=== PATIENT | male | born 1955 | race Caucasian/White ===

== ENCOUNTER 2017-04-02 09:21 | Emergency (ER) | payer BC ==
[2017-04-02 09:44] VITALS: BP 114/65
--- NOTE | 2017-04-02 10:04 | UC ---
Skin Complaint HPI - HPI Summary HPI Summary: pt presents with c/o left upper extremity erythema and tenderness. Pt reports that he was stung by 4-5 bees yesterday. Pt denies difficulty breathing, throat swelling or lip swelling. Pt is concerned about cellulitis - History of Current Complaint Chief Complaint: UCSkin Time Seen by Provider: 04/02/17 09:47 Stated Complaint: LEFT ARM/RIGHT EAR BEE STINGS Hx Obtained From: Patient Onset/Duration: Gradual Onset, Lasting Hours Skin Exposure Onset/Duration: Days Ago - 1 day Timing: Constant Onset Severity: Mild Current Severity: Mild Location: Discrete, Other - left upper extremity Character: Redness, Raised, Painful Aggravating: Touch Alleviating: Antihistamines Associated Signs & Symptoms: Positive: Tenderness - Allergy/Home Medications Allergies/Adverse Reactions: Allergies Allergy/AdvReac Type Severity Reaction Status Date / Time Sulfa Drugs Allergy Intermediate Rash Verified 04/02/17 09:44 Review of Systems Constitutional: Negative Skin: Other - small pin prick pustular area on mid anterior left bicep erythema , generalized erythema left upper extremity. Eyes: Negative ENT: Negative Respiratory: Negative Cardiovascular: Negative Gastrointestinal: Negative Genitourinary: Negative Motor: Negative Neurovascular: Negative Musculoskeletal: Negative Neurological: Negative Psychological: Negative All Other Systems Reviewed And Are Negative: Yes PMH/Surg Hx/FS Hx/Imm Hx Previously Healthy: Yes - Surgical History Surgical History: Yes Surgery Procedure, Year, and Place: RT HAND SURGERY. L WRIST CYST REMOVED. SINUS SX. HERNIA REPAIR. BILATERAL SHOULDER SX. BILATERAL KNEE ARTHROSCOPY - Family History Known Family History: Positive: Hypertension - Social History Alcohol Use: None Substance Use Type: None Smoking Status (MU): Former Smoker Type: Cigarettes Amount Used/How Often: 1 1/2 PPD Length of Time of Smoking/Using Tobacco: 7 Years Have You Smoked in the Last Year: No When Did the Patient Quit Smoking/Using Tobacco: 1979 - Immunization History Most Recent Tetanus Shot: within last 10 years- unsure when Physical Exam Triage Information Reviewed: Yes Appearance: Well-Appearing Vital Signs: Initial Vital Signs Pulse 61 04/02/17 09:33 Resp 20 04/02/17 09:33 BP 114/65 04/02/17 09:33 Pulse Ox 97 04/02/17 09:33 Vital Signs Reviewed: Yes Neck exam: Normal Respiratory Exam: Normal Cardiovascular Exam: Normal Musculoskeletal Exam: Normal Neurological Exam: Normal Psychological Exam: Normal Skin Exam: Other - generalized erythema on left upper extremity with generalized mild edema. small pustular area in mid anterior left bicep Course/Dx - Differential Diagnoses - Skin Complaint Differential Diagnoses: Allergic Reaction, Cellulitis - Diagnoses Provider Diagnoses: allergic reaction. bee sting. cellulitis Discharge - Discharge Plan Condition: Stable Disposition: HOME Prescriptions: Cephalexin CAP* [Keflex 500 CAP*] 500 mg PO Q12H #10 cap LoraTADine TAB(NF) [Claritin 10 MG TAB(NF)] 10 mg PO DAILY #10 tab Patient Education Materials: Cellulitis (ED), Insect Bite or Sting (ED) Referrals: Gautam St MD [Primary Care Provider] -
== END 2017-04-02 10:12 | disposition home or self-care (01) ==
LOC: UCCORT 09:21
DX: L03.114 Cellulitis of left upper limb (principal); Z87.891 Personal history of nicotine dependence; T63.441A Toxic effect of venom of bees, accidental (unintentional), initial encounter; Y92.9 Unspecified place or not applicable; T78.40XA Allergy, unspecified, initial encounter; X58.XXXA Exposure to other specified factors, initial encounter
CPT/HCPCS: 99212; G0463

== ENCOUNTER 2017-06-11 15:40 | Emergency (ER) | payer BC ==
[2017-06-11 16:13] VITALS: BP 120/67
--- NOTE | 2017-06-11 16:28 | UC ---
Hand/Wrist HPI - HPI Summary HPI Summary: Patient was walking dog, the leash got wrapped around the hand and now has swelling and pain over the 4th and 5th metacarpal. - History Of Current Complaint Chief Complaint: UCUpperExtremity Stated Complaint: HAND INJURY Time Seen by Provider: 06/11/17 16:11 Hx Obtained From: Patient ?: No Onset/Duration: Sudden Onset, Lasting Hours Severity Initially: Mild Severity Currently: Moderate Character Of Pain: Dull, Aching, Stiffness Aggravating Factor(s): Movement Alleviating: Rest, Ice Associated Signs And Symptoms: Positive: Swelling - Allergies/Home Medications Allergies/Adverse Reactions: Allergies Allergy/AdvReac Type Severity Reaction Status Date / Time Sulfa Drugs Allergy Intermediate Rash Verified 06/11/17 16:09 PMH/Surg Hx/FS Hx/Imm Hx Previously Healthy: Yes - Surgical History Surgical History: Yes Surgery Procedure, Year, and Place: RT HAND SURGERY. L WRIST CYST REMOVED. SINUS SX. HERNIA REPAIR. BILATERAL SHOULDER SX. BILATERAL KNEE ARTHROSCOPY - Family History Known Family History: Positive: Hypertension - Social History Alcohol Use: None Substance Use Type: None Smoking Status (MU): Former Smoker Type: Cigarettes Amount Used/How Often: 1 1/2 PPD Length of Time of Smoking/Using Tobacco: 7 Years Have You Smoked in the Last Year: No When Did the Patient Quit Smoking/Using Tobacco: 1979 - Immunization History Most Recent Influenza Vaccination: Not the 2016/2017 Season Most Recent Tetanus Shot: 07/11/15 Review of Systems Constitutional: Negative Skin: Negative Eyes: Negative ENT: Negative Respiratory: Negative Cardiovascular: Negative Gastrointestinal: Negative Genitourinary: Negative Motor: Negative Neurovascular: Negative Musculoskeletal: Arthralgia, Edema, Myalgia Neurological: Negative Psychological: Negative Is Patient Immunocompromised?: No All Other Systems Reviewed And Are Negative: Yes Physical Exam Triage Information Reviewed: Yes Appearance: Well-Appearing, Well-Nourished, Pain Distress Vital Signs: Initial Vital Signs Temp 97.3 F 06/11/17 16:06 Pulse 58 06/11/17 16:06 Resp 16 06/11/17 16:06 BP 120/67 06/11/17 16:06 Pulse Ox 100 06/11/17 16:06 Vital Signs Reviewed: Yes Eye Exam: Normal ENT Exam: Normal ENT: Positive: Hearing grossly normal, Pharynx normal, TMs normal Dental Exam: Normal Neck exam: Normal Neck: Positive: Supple, Nontender, No Lymphadenopathy Respiratory Exam: Normal Respiratory: Positive: Chest non-tender, Lungs clear, Normal breath sounds Cardiovascular Exam: Normal Cardiovascular: Positive: RRR, No Murmur, Pulses Normal Abdominal Exam: Normal Abdomen Description: Positive: Nontender, No Organomegaly, Soft Bowel Sounds: Positive: Present Musculoskeletal: Positive: ROM Intact, Strength Limited @ - in right visitor services specialist, Edema @ - over the 4th and 5th met Neurological Exam: Normal Psychological Exam: Normal Skin Exam: Normal Hand/Wrist Course/Dx - Course Course Of Treatment: hx obtained, exam performed ,meds reviewed, ice applied and xray obtained and is negative, lavonne applied, referred to otho for follow up if not improving - Differential Dx/Diagnosis Differential Diagnosis/HQI/PQRI: Contusion, Dislocation, Fracture, Sprain, Strain Provider Diagnoses: contusion to right hand Discharge - Discharge Plan Condition: Stable Disposition: HOME Patient Education Materials: Contusion in Adults (ED) Referrals: Gautam St MD [Primary Care Provider] - Epi Miller MD [Medical Doctor] - Additional Instructions: 1. Ibuprofen and compression to reduce the swelling. 2. Follow up with Dr Miller if pain persists.
--- NOTE | 2017-06-11 17:00 | RAD ---
HISTORY: Right hand injury COMPARISONS: May 26, 2013 VIEWS: 4, Frontal, lateral, and oblique views of the right hand FINDINGS: BONE DENSITY: Normal. BONES: There is post surgical change to the fourth metacarpal. There is remote posttraumatic deformity to the fifth metacarpal. There is no acute displaced fracture or dislocation. JOINTS: There is no arthropathy. ALIGNMENT: There is no dislocation. SOFT TISSUES: Unremarkable. OTHER FINDINGS: None. IMPRESSION: POSTSURGICAL AND REMOTE POST TRAUMATIC CHANGE. NO ACUTE OSSEOUS INJURY. IF SYMPTOMS PERSIST, RECOMMEND REPEAT IMAGING.
== END 2017-06-11 17:17 | disposition home or self-care (01) ==
LOC: UCCORT 15:40
DX: S60.221A Contusion of right hand, initial encounter (principal); W23.0XXA Caught, crushed, jammed, or pinched between moving objects, initial encounter; Y93.K1 Activity, walking an animal; Y92.9 Unspecified place or not applicable; Z88.2 Allergy status to sulfonamides; Z87.891 Personal history of nicotine dependence
CPT/HCPCS: 99212; G0463

== ENCOUNTER 2017-07-16 07:08 | Emergency (ER) | payer BC | END 2017-07-16 21:45 | disposition left against medical advice (07) | LOC: UCCORT 07:08 | DX: H57.8 Other specified disorders of eye and adnexa (principal); Z53.21 Procedure and treatment not carried out due to patient leaving prior to being seen by health care provider ==

== ENCOUNTER 2017-10-28 10:52 | Emergency (ER) | payer BC ==
[2017-10-28 13:39] VITALS: BP 112/61
--- NOTE | 2017-10-28 13:58 | UC ---
Eye Complaint HPI - HPI Summary HPI Summary: 62 year old male with eye complaint. Left upper eyelid erythema, "scratchy" pain , and swelling for one week. Has tried erythromycin ointment with minimal improvement. Denies injury or contact lens use. No fever. No vision loss. No FB sensation. Has had before and aeen by dr dove also with right hand pain for over 4 mo and had normal x rays but wondering if should go to ortho for intermittent pain [ End ] - History of Current Complaint Chief Complaint: UCEye Stated Complaint: EYE IRRITATIOIN Time Seen by Provider: 10/28/17 13:47 Hx Obtained From: Patient Onset/Duration: Gradual Onset Timing: Constant Severity Initially: Moderate Severity Currently: Moderate Pain Intensity: 1 Character: Dull Aggravating Factor(s): Nothing Alleviating Factor(s): Nothing Associated Signs And Symptoms: Positive: Negative Related History: Similar Episode - Allergies/Home Medications Allergies/Adverse Reactions: Allergies Allergy/AdvReac Type Severity Reaction Status Date / Time Sulfa (Sulfonamide Allergy Rash Verified 10/28/17 13:35 Antibiotics) PMH/Surg Hx/FS Hx/Imm Hx Previously Healthy: Yes - Surgical History Surgical History: Yes Surgery Procedure, Year, and Place: RT HAND SURGERY. L WRIST CYST REMOVED. SINUS SX. HERNIA REPAIR. BILATERAL SHOULDER SX. BILATERAL KNEE ARTHROSCOPY - Family History Known Family History: Positive: Hypertension - Social History Occupation: Employed Full-time Alcohol Use: None Substance Use Type: None Smoking Status (MU): Former Smoker Type: Cigarettes Amount Used/How Often: 1 1/2 PPD Length of Time of Smoking/Using Tobacco: ~1 1/2 PPD x 10 Years Have You Smoked in the Last Year: No When Did the Patient Quit Smoking/Using Tobacco: ~ - Immunization History Most Recent Influenza Vaccination: Not the 2016/2017 Season Most Recent Tetanus Shot: 07/11/15 Review of Systems Eyes: Other - left upper eye lid Musculoskeletal: Arthralgia - right hand Is Patient Immunocompromised?: No All Other Systems Reviewed And Are Negative: Yes Physical Exam Triage Information Reviewed: Yes Appearance: Well-Appearing, No Pain Distress, Well-Nourished Vital Signs: Initial Vital Signs Temp 98.2 F 10/28/17 13:33 Pulse 66 10/28/17 13:33 Resp 16 10/28/17 13:33 BP 112/61 10/28/17 13:33 Pulse Ox 95 10/28/17 13:33 Vital Signs Reviewed: Yes Eye Exam: Normal Eyes: Positive: Conjunctiva Clear, Conjunctiva Inflamed, Other: - left upper eye lid with raised reddened horeleum . no discharge. Negative: Discharge ENT Exam: Normal ENT: Positive: Normal ENT inspection Dental Exam: Normal Neck exam: Normal Respiratory Exam: Normal Cardiovascular Exam: Normal Musculoskeletal: Positive: Strength Intact, ROM Intact, No Edema, Other: - right lateral hand minimal tenderness to palpation. no bruising. FROM. sensation intact. UE strength 5/5 Neurological Exam: Normal Psychological Exam: Normal Skin Exam: Normal Eye Complaint Course/Dx - Course Course Of Treatment: to go back to Optho for follow up . no acute concerns. continue to hot pack / tea bag use which he has been using since yesterday - Differential Dx/Diagnosis Differential Diagnosis/HQI/PQRI: Conjunctivitis, Corneal Abrasion, Keratitis, Uveitis Provider Diagnoses: left upper eye lid hordeleum Discharge - Discharge Plan Condition: Good Disposition: HOME Prescriptions: Neomycin/Polym/HC OPTH.SUSP* [Cortisporin OPHTH.SUSP*] 1 drop LEFT EYE Q4H #1 btl Patient Education Materials: Jackelyn (ED) Referrals: No Primary Care Phys,NOPCP [Primary Care Provider] - If Needed Hemant Dove MD [Medical Doctor] - (Opthomology referral if needed ) Epi Miller MD [Medical Doctor] - (Orthopedic referral if needed for your right hand )
== END 2017-10-28 14:19 | disposition home or self-care (01) ==
LOC: UCCORT 10:52
DX: H00.014 Hordeolum externum left upper eyelid (principal); Z87.891 Personal history of nicotine dependence
CPT/HCPCS: 99212; G0463

== ENCOUNTER 2019-06-23 11:30 | Day surgery (SDC) | payer BC ==
[~2019-06-23 11:30] MED LIST: Buffered Lidocaine 1% SYRIN* 1 ML/SYRINGE INTRADERM ONE; Dexmedetomidine* 200 MCG/2 ML 2 ML VIAL ONE; Lactated Ringers 1000 ML Bag* 1,000 ML IV SCH; ROPIVACAINE 5 MG/ML 30 ML BTL (0.5%) ONE; ceFAZolin 2 GM PREMIX in ORs 2 GM/50 ML BAG ONE
[2019-06-23] MEDS ORDERED: Midazolam* 1 MG/ML 2 ML VIAL (2 MG) ONE (12:15)
[2019-06-23] MEDS ORDERED: fentaNYL* 50 MCG/ML 5 ML VIAL (250 MCG VIAL) ONE (12:15)
[2019-06-23] MEDS ORDERED: Lidocaine 2% PF * 5 ML VIAL ONE (12:16)
[2019-06-23] MEDS ORDERED: Propofol* 10 MG/ML 20 ML BTL ONE ×2 (12:16→12:18)
[2019-06-23] MEDS ORDERED: Lidocaine 1% MPF ** 5 ML VIAL ONE (12:22)
[2019-06-23] MEDS ORDERED: Rocuronium* 10 MG/ML VIAL ONE (12:47)
[2019-06-23] MEDS ORDERED: Ondansetron INJ* 2 MG/ML VIAL ONE (13:34)
[2019-06-23] MEDS ORDERED: Metoclopramide IV* 5 MG/ML 2 ML VIAL ONE (13:34)
[2019-06-23] MEDS ORDERED: Dexamethasone IV* 4 MG/ML 1 ML (4 MG) ONE (13:34)
[2019-06-23] MEDS ORDERED: Ketorolac INJ* 30 MG/ML 1 ML VIAL ONE (13:34)
[2019-06-23] MEDS ORDERED: Ropivacaine 0.2% * 2 MG/ML VIAL ONE (14:34)
[2019-06-23] MEDS ORDERED: diPHENhydraMINE IV* 50 MG/ML 1 ml VIAL (BENADRYL) IV PRN (14:42)
[2019-06-23] MEDS ORDERED: oxyCODONE TAB* 5 MG TAB PO PRN (14:42)
[2019-06-23] MEDS ORDERED: HYDROmorphone INJ1* 1 MG/ML SYRINGE IV PRN (14:42)
[2019-06-23] MEDS ORDERED: Naloxone* 0.4 MG/ML 1 ML VIAL IV PRN (14:42)
[2019-06-23] MEDS ORDERED: DiMENhydriNATE IV* 50 MG/ML VIAL IV PUSH PRN (14:42)
[2019-06-23] MEDS ORDERED: Glycopyrrolate IV* 0.2 MG/ML 1 ML VIAL ONE (14:54)
[2019-06-23] MEDS ORDERED: Neostigmine Methylsulfate* 3 MG/3 ML SYRINGE ONE (14:54)
[2019-06-23] MEDS ORDERED: Acetaminophen IV 1GM/100ML * 100 ML ONE (15:21)
[2019-06-23 16:23] VITALS: BP 103/62
--- NOTE | 2019-06-24 10:39 | OP ---
CC: PCP OPERATIVE REPORT: DATE OF OPERATION: 06/23/19 DATE OF : 59 SURGEON: Sugey Yoo MD. WARD NURSE: ULICES Carrion An assistant banquet manager was needed for the entirety of the case to help with positioning, retraction, and was utilized throughout all portions of the case. ANESTHESIOLOGIST: Dr. Lucio. ANESTHESIA: General interscalene block. PRE-OP DIAGNOSIS: Right shoulder high grade partial thickness tear of the rotator cuff with bicipital tendinosis and tendonitis. POST-OP DIAGNOSIS: Right shoulder full thickness large tear of the supraspinatus tendon and bicipital tendonitis and tendinosis. OPERATIVE PROCEDURE: Right shoulder arthroscopy with: 1. Excision and glenohumeral debridement. 2. Subacromial decompression with acromioplasty. 3. Distal clavicle excision. 4. Rotator cuff repair of the subscap and the infra and supraspinatus tendon in a double row fashion augmented with Regeneten patch. 5. Open biceps tenodesis. COMPLICATIONS: None. ESTIMATED BLOOD LOSS: Minimal. IMPLANTS USED: Two Healicoils, two MultiFixes, one 2.8 Q-Fix. Regeneten patch , size medium. INDICATIONS: Bryant Romero is a 63-year-old male, who has had persistent shoulder pain after a fall going down the stairs. He also had a history of AC reconstruction in the past that was painful. He says he had failed conservative management and elected to proceed with conservative treatment. MRI demonstrated what looked like partial-thickness tearing and tendinosis with no full-thickness tear. After extensive discussion, the risks, benefits of surgical and nonoperative note, he elected to proceed surgical treatment. The risks and benefits were discussed at length including, but not limited to bleeding; infection; damage to nerves, vessels, surrounding structures; wound nonhealing; persistent pain; need for further surgery; scarring; stiffness; incomplete relief of symptoms; risk of anesthesia, risk of DVT. DESCRIPTION OF PROCEDURE: The patient was greeted in the preoperative area by the attending surgeon. Correct extremity was marked, consent was confirmed. The patient underwent interscalene nerve block by the anesthesiologist after which he was brought back to the operating suite, placed in the supine on the operating room table, and then underwent general anesthesia and endotracheal intubation, after which he was placed in a left lateral decubitus position with an axillary roll. All bony prominences were padded, secured with a peg board. The right shoulder was draped unsterile with 10 pounds of traction. Right shoulder was then prepped and draped in the usual sterile fashion beginning with chlorhexidine soap, scrub, and alcohol wipe, and a final prep with ChloraPrep. After appropriate surgical pause indicating site, side, procedure, and administration of antibiotics, a standard posterolateral portal was made with an 11 blade. Scope was introduced into the joint and the joint was examined. There was abundant synovitis that was present. The glenohumeral joint had grade -1 changes. The inferior recess was intact. There was significant amount of synovitis. Biceps had tearing along the biceps tendon as well as superior labral swelling, tearing and instability. The subscap was difficult to visualize, but appeared to be grossly intact, but there was an obvious full- thickness tear of the rotator cuff. This appeared to be somewhat acute in nature with evidence of a traumatic type of rupture. At this point, the biceps was tenotomized for later tenodesis. The scope was then positioned in the subacromial space. With the scope introduced into the subacromial space, a lateral portal was made in an outside-in fashion. Shaver was used to debride back the abundant thick bursa that was present. There was evidence of some intact fibers about the greater tuberosity, but there was a large hole on the rotator cuff, which appeared to have split. The subscap was also peeled back with the supraspinatus come forward at the bicipital groove. There was a much larger tear than anticipated. The shaver was then used to debride back the poor quality tissue. The electrocautery device was also used to skeletonize the greater tuberosity. The cuff tissue was carefully mobilized and was found to be not significantly scarred back. Attention was directed to the subacromial space. At this point, the decompression was completed and the undersurface of the acromion was skeletonized with electrocautery device. A 4.0 oval bur was then used to do an acromioplasty and peeled back to CA ligament. This was taken all the way to the level of the AC joint. Again, the patient had a previous surgery at the AC joint and it was stenotic, but there was also a significant amount of scar tissue present. The electrocautery device was used to expose the AC joint. The bur was brought to the anterior portal and the distal 8 mm of the clavicle was then removed using the bur. Hemostasis was obtained at all times. Attention was directed back to his rotator cuff. The greater tuberosity was exposed and then we carefully burred to gently decorticate as well as roughed to allow for bony bleeding bed. Cuff tissue was carefully mobilized, first as it was mobilized, a side to side stitch was first done to complete the side to side repair. This helped to mobilize the cuff somewhat, but some of the subscap appeared to be involved as well. Therefore, an anterior anchor was placed through a separate stab incision and 4.75 Healicoil was placed with excellent purchase. The second Healicoil was then placed along the medial row of the supraspinatus footprint. The sutures were then passed in a horizontal mattress configuration first to the subscap and then through the supraspinatus anterior to posterior. Care was taken to try to incorporate the two leaflets and grabbed the very anterior part of the infraspinatus as well. Once the sutures were tied down, the cuff was nicely reapproximated to the greater tuberosity. The quality of the tendon was okay. At this point, two MultiFixes were used for anterolateral and posterolateral double-row fixation. This allowed to compress the cuff and nicely supported. Because this is a traumatic tear and the patient was young and this is at least a few months old, decision was made to try to augment the repair with a Regeneten patch. Therefore a size medium Regeneten patch was then chosen and placed through the lateral portal to augment the repair. This was secured medially with tendon cheikh and laterally with bone PEEK cheikh. Final images were obtained. The wounds were then copiously irrigated with sterile saline and attention was directed to the biceps. The bed was aeroplaned and the anterior aspect of the shoulder was prepped again using the ChloraPrep. In the anterior aspect of the shoulder, a 15 blade was used to make an incision in line with the biceps tendon encompassing the inferior portion of the pec tendon. The soft tissue was carefully dissected to expose the pec tendon and the biceps was then brought through the wound. He was found to have with respect to the biceps had significant tendinosis and tendonitis. The groove was then prepared in the usual fashion using electrocautery device, red ball rasp, and osteotome. The Q-Fix was then drilled unicortically and deployed with excellent purchase. The sutures were then passed through the biceps approximately 1 cm proximal to the musculotendinous junction with Anton-Bradley type configuration and the excess stump was excised and the biceps was shuttled back to the groove. The wounds were then copiously with sterile saline. The anterior wound was closed in layers with 3-0 Monocryl. The portals were closed 3-0 nylon in an interrupted fashion. The wounds were copiously irrigated with sterile saline. Sterile dressings were applied. A Cryo/Cuff and UltraSling were applied. He was awoken from anesthesia and transferred to PACU in stable condition. POSTOPERATIVE PLAN: He will be nonweightbearing. He will be in a sling for approximately 6 weeks. He is discharged on pain mediation. DVT prophylaxis considered but deferred due to no previous personal or family history. I will see the patient back in 10 to 14 days. [id number]/[facility] #: [id number] [place]OS[facility]ITALMeng
== END 2019-06-23 16:35 | disposition home or self-care (01) ==
LOC: OREAST 11:30
PROVIDERS: ATTEND Orthopaedic Surgery
DX: S46.011A Strain of muscle(s) and tendon(s) of the rotator cuff of right shoulder, initial encounter (principal); M75.21 Bicipital tendinitis, right shoulder; W19.XXXA Unspecified fall, initial encounter; Y92.9 Unspecified place or not applicable; G89.18 Other acute postprocedural pain; G47.33 Obstructive sleep apnea (adult) (pediatric); Z87.891 Personal history of nicotine dependence; E78.5 Hyperlipidemia, unspecified
CPT/HCPCS: C1713; C1776; J0690; J1100; J1885; J2250; J2405; J2704; J2710; J2765; J2795; J3010

== ENCOUNTER 2019-06-24 11:18 | Day surgery (SDC) | payer BC ==
[2019-06-24] MEDS ORDERED: ROPIVACAINE 5 MG/ML 30 ML BTL (0.5%) ONE (11:43)
[2019-06-24] MEDS ORDERED: Midazolam* 1 MG/ML 2 ML VIAL (2 MG) ONE (11:43)
[2019-06-24] MEDS ORDERED: Lidocaine 2% PF * 5 ML VIAL ONE (11:43)
[2019-06-24] MEDS ORDERED: fentaNYL* 50 MCG/ML 2 ML VIAL (100 MCG VIAL) ONE (11:44)
== END 2019-06-24 13:35 | disposition home or self-care (01) ==
LOC: OR 11:18
PROVIDERS: ATTEND Orthopaedic Surgery
DX: S46.011D Strain of muscle(s) and tendon(s) of the rotator cuff of right shoulder, subsequent encounter (principal); S46.111D Strain of muscle, fascia and tendon of long head of biceps, right arm, subsequent encounter; M25.511 Pain in right shoulder; M75.21 Bicipital tendinitis, right shoulder; W19.XXXD Unspecified fall, subsequent encounter; Y92.9 Unspecified place or not applicable; E78.00 Pure hypercholesterolemia, unspecified; J30.89 Other allergic rhinitis; E03.9 Hypothyroidism, unspecified; F10.21 Alcohol dependence, in remission
CPT/HCPCS: 64415; J2250; J2795; J3010

== ENCOUNTER 2021-08-04 06:57 | Inpatient (IN) ==
[~2021-08-04 06:57] MED LIST changes: +Buffered Lidocaine 1% SYRIN 1 ml INTRADERM ONE; -Buffered Lidocaine 1% SYRIN* 1 ML/SYRINGE INTRADERM ONE; -Dexmedetomidine* 200 MCG/2 ML 2 ML VIAL ONE; -Lactated Ringers 1000 ML Bag* 1,000 ML IV SCH; -ROPIVACAINE 5 MG/ML 30 ML BTL (0.5%) ONE; -ceFAZolin 2 GM PREMIX in ORs 2 GM/50 ML BAG ONE
[2021-08-04] MEDS ORDERED: ceFAZolin 2 GM in NS PREMIX 2 GM/100 ML BAG IVPB ONE (08:03)
[2021-08-04] MEDS ORDERED: Bupivacaine 0.5% SDV PF 30ML VIAL ONE (08:07)
[2021-08-04] MEDS ORDERED: Midazolam 5 mg/5 ml VIAL 1 mg/ml 5 ml VIAL (5 mg) ONE (08:07)
[2021-08-04] MEDS ORDERED: Phenylephrine IV 10 MG/ML 1 ml VIAL ONE (08:07)
[2021-08-04] MEDS: Lactated Ringers 1000 ml BAG 1,000 ML IV SCH ×3 (08:28→14:54)
[2021-08-04] MEDS ORDERED: Ondansetron 4 mg VIAL 2 MG/ML 2 ml VIAL ONE (09:03)
[2021-08-04] MEDS ORDERED: Propofol 10 MG/ML 20 ML BTL ONE ×2 (09:03→12:18)
[2021-08-04] MEDS ORDERED: Rocuronium 50 mg VIAL 10 mg/ml 5 ml VIAL (50 mg) ONE ×2 (09:03→11:41)
[2021-08-04] MEDS ORDERED: Dexamethasone IV 4 MG/ML VIAL 1 ml VIAL ONE (09:03)
[2021-08-04] MEDS ORDERED: Lidocaine 2% PF 5 ML VIAL ONE (09:04)
[2021-08-04] MEDS ORDERED: fentaNYL 100 mcg/2 ml 50 MCG/ML VIAL ONE ×2 (09:05→13:08)
[2021-08-04] MEDS ORDERED: ROPIVACAINE 5 MG/ML 30 ML BTL (0.5%) ONE ×2 (10:13→10:20)
[2021-08-04] MEDS ORDERED: Lidocaine 1% MPF 5 ML VIAL ONE (10:20)
[2021-08-04] MEDS ORDERED: diPHENhydraMINE IV 50 MG/ML 1 ml VIAL (BENADRYL) IV PRN ×2 (11:52→12:04)
[2021-08-04] MEDS ORDERED: Ondansetron ODT 4 mg TAB 4 MG TAB PO PRN (11:52)
[2021-08-04] MEDS ORDERED: Morphine 2 MG/ML SYRINGE IV PRN (11:52)
[2021-08-04] MEDS ORDERED: diPHENhydraMINE 25 mg TAB PO PRN (11:52)
[2021-08-04] MEDS ORDERED: Ondansetron 4 mg VIAL 2 MG/ML 2 ml VIAL IV PRN ×2 (11:52→12:04)
[2021-08-04] MEDS ORDERED: Magnesium Hydroxide LIQ 30 ML UDC PO PRN (11:52)
[2021-08-04] MEDS ORDERED: Lactulose 30 ml UDC PO PRN (11:52)
[2021-08-04] MEDS ORDERED: fentaNYL 100 mcg/2 ml 50 MCG/ML VIAL IV PRN (12:04)
[2021-08-04] MEDS ORDERED: HYDROmorphone 1 MG/1 ML SYRINGE IV PRN (12:04)
[2021-08-04] MEDS ORDERED: Acetaminophen IV 1 GM/100ML 100 ML IV PRN (12:04)
[2021-08-04] MEDS ORDERED: DiMENhydriNATE IV 50 mg/ml 1 ml VIAL IV PUSH PRN (12:04)
[2021-08-04] MEDS ORDERED: Naloxone 0.4 mg VIAL 0.4 mg/ml 1 ml VIAL IV PRN (12:04)
[2021-08-04] MEDS ORDERED: Prochlorperazine 5 mg/ml 2 ml VIAL (10 mg) IV PRN (12:04)
[2021-08-04] MEDS ORDERED: Sugammadex 500 MG/5 ML 5 ml VIAL IV PUSH ONE (12:59)
[2021-08-04] MEDS: Magnesium Hydroxide LIQ 30 ML UDC PO SCH (21:12)
[2021-08-04] MEDS: ceFAZolin 1 GM ADVAN 1 GM in NS 0.9% 50 ML 50 ML IVPB SCH (21:20)
[2021-08-05] MEDS: Lactated Ringers 1000 ml BAG 1,000 ML IV SCH (01:49)
[2021-08-05] MEDS: ceFAZolin 1 GM ADVAN 1 GM in NS 0.9% 50 ML 50 ML IVPB SCH ×2 (05:34→13:24)
[2021-08-05 05:57] LABS: Hematocrit 38 % (42-52); Hemoglobin 12.6 g/dL (14.0-18.0); Mean Platelet Volume 8.3 fL (7.4-10.4); Platelet Count 181 10^3/uL (150-450)
[2021-08-05 06:16] LABS: Calcium 8.6 mg/dL (8.6-10.3); Potassium 4.4 mmol/L (3.5-5.0)
[2021-08-05] MEDS: Magnesium Hydroxide LIQ 30 ML UDC PO SCH (08:30)
[2021-08-05] MEDS ORDERED: Vitamin THERAPEUTIC TAB PO SCH (09:00)
[2021-08-05 11:46] VITALS: BP 131/78
== END 2021-08-05 14:00 | disposition home or self-care (01) | DRG 302 ==
LOC: AA 06:57 → SSU 14:56
PROVIDERS: ADMIT Orthopaedic Surgery Adult Reconstructive Orthopaedic Surgery; ATTEND Orthopaedic Surgery Adult Reconstructive Orthopaedic Surgery

== ENCOUNTER 2022-07-07 06:17 | Inpatient (IN) ==
[~2022-07-07 06:17] MED LIST changes: +Famotidine IV 10 MG/ML 2 ml VIAL (20 mg) IV ONE
[2022-07-07] MEDS ORDERED: Buffered Lidocaine 1% SYRIN 1 ml INTRADERM ONE (06:59)
[2022-07-07] MEDS ORDERED: ceFAZolin 2 GM PREMIX 2 GM/50 ML BAG ONE (06:59)
[2022-07-07] MEDS ORDERED: Famotidine IV 10 MG/ML 2 ml VIAL (20 mg) ONE (06:59)
[2022-07-07] MEDS: Lactated Ringers 1000 ml BAG 1,000 ML IV SCH ×2 (07:46→14:05)
[2022-07-07] MEDS ORDERED: Naloxone 0.4 mg VIAL 0.4 mg/ml 1 ml VIAL IV PRN (08:25)
[2022-07-07] MEDS ORDERED: Ondansetron 4 mg VIAL 2 MG/ML 2 ml VIAL IV PRN ×2 (08:25→10:54)
[2022-07-07] MEDS ORDERED: Midazolam 2 mg/2 ml VIAL 1 mg/ml 2 ml VIAL (2 mg) ONE ×2 (08:28→09:20)
[2022-07-07] MEDS ORDERED: fentaNYL 100 mcg/2 ml 50 MCG/ML VIAL ONE ×3 (08:28→12:13)
[2022-07-07] MEDS ORDERED: ROPIVACAINE 5 MG/ML 30 ML BTL (0.5%) ONE ×2 (08:31→09:30)
[2022-07-07] MEDS ORDERED: Dexamethasone IV 4 MG/ML VIAL 1 ml VIAL ONE (09:45)
[2022-07-07] MEDS ORDERED: HYDROmorphone 0.5 MG/0.5 ML SYRINGE ONE (09:45)
[2022-07-07] MEDS ORDERED: Ondansetron 4 mg VIAL 2 MG/ML 2 ml VIAL ONE (09:45)
[2022-07-07] MEDS ORDERED: Acetaminophen IV 1 GM/100ML 1,000 MG/100 ML BAG IV ONE (10:05)
[2022-07-07] MEDS ORDERED: Glycopyrrolate IV 0.2 MG/ML 1 ML VIAL ONE (10:17)
[2022-07-07] MEDS ORDERED: Magnesium Hydroxide LIQ 30 ML UDC PO PRN (10:54)
[2022-07-07] MEDS ORDERED: Morphine 2 MG/ML SYRINGE IV PRN (10:54)
[2022-07-07] MEDS ORDERED: Lactulose 30 ml UDC PO PRN (10:54)
[2022-07-07] MEDS ORDERED: Ondansetron ODT 4 mg TAB 4 MG TAB PO PRN (10:54)
[2022-07-07] MEDS ORDERED: Lactated Ringers 1000 ml BAG 1,000 ML IV SCH (11:00)
[2022-07-07] MEDS: fentaNYL 100 mcg/2 ml 50 MCG/ML VIAL IV PRN ×3 (12:14→12:37)
[2022-07-07] MEDS: ceFAZolin 1 GM ADVAN 1 GM in NS 0.9% 50 ML 50 ML IVPB SCH (17:54)
[2022-07-07] MEDS: Magnesium Hydroxide LIQ 30 ML UDC PO SCH (19:46)
[2022-07-08] MEDS: ceFAZolin 1 GM ADVAN 1 GM in NS 0.9% 50 ML 50 ML IVPB SCH ×2 (01:41→10:08)
[2022-07-08 06:33] LABS: Hematocrit 37 % (42-52); Hemoglobin 12.3 g/dL (14.0-18.0); Platelet Count 187 10^3/uL (150-450)
[2022-07-08 06:53] LABS: Calcium 8.5 mg/dL (8.6-10.3); eGFR CKD-EPI 96.7 (>60)
[2022-07-08] MEDS: Magnesium Hydroxide LIQ 30 ML UDC PO SCH (08:23)
[2022-07-08] MEDS ORDERED: Vitamin THERAPEUTIC TAB PO SCH (09:00)
[2022-07-08 11:37] VITALS: BP 108/65
[2022-07-08] MEDS ORDERED: PAIN RELIEVING RUB (MENTHOL/SALICYLATE) 1 APPLIC TUBE TOPICAL PRN (12:50)
== END 2022-07-08 14:15 | disposition home or self-care (01) | DRG 302 ==
LOC: AA 06:17 → SSU 13:56
PROVIDERS: ADMIT Orthopaedic Surgery Adult Reconstructive Orthopaedic Surgery; ATTEND Orthopaedic Surgery Adult Reconstructive Orthopaedic Surgery